=== PATIENT | male | born 1955 | race Caucasian/White ===

== ENCOUNTER → 2018-03-16 | Day surgery (SDC) | payer BC ==
[2018-03-11 13:32] VITALS: BMI 25.4
[~2018-03-16] MED LIST: LIDOCAINE HCL/PF 2% SDV 5ML VIAL ONE; PROPOFOL 20 ML ONE
[2018-03-16 08:21] VITALS: TEMP 97.9
[2018-03-16 10:55] VITALS: BP 114/74; PULSE 68
--- NOTE | 2018-03-18 11:27 | PATH ---
Surgical Pathology Report Patient Name: EDILIA SIERRA V. [facility]. Rec. #: [id number] /Age/Gender: 1955 (Age: 62) / M Account: [id number] Location: [facility] AMBUL[facility]ORY Taken: 03/16/2018 Received: 03/16/2018 Reported: 03/18/2018 Physicians: Hermes Rodriguez M.D. Specimen(s) Received A: BX DUODENUM B: BX ANTRUM C: GASTRIC POLYP Clinical History GERD Rule out celiac disease, rule out H. Pylori, gastritis, gastric polyp Final Diagnosis A. DUODENAL, BIOPSY: DUODENAL MUCOSA WITH NO PATHOLOGIC FINDINGS. NO EVIDENCE OF CELIAC DISEASE. B. ANTRUM, BIOPSY: MILD CHRONIC GASTRITIS. IMMUNOSTAIN IS NEGATIVE FOR H. PYLORI ORGANISMS. C. GASTRIC POLYP, POLYPECTOMY: FUNDIC GLAND POLYP. IMMUNOSTAIN IS NEGATIVE FOR H. PYLORI ORGANISMS. Electronically Signed Tina Browning M.D. Gross Description A. Received in formalin, labeled "duodenum" are 2 yadav, irregular portions of soft tissue averaging 0.4 cm. in greatest dimension. The specimens are submitted in toto in one cassette. B. Received in formalin, labeled "antrum" are 2 yadav, irregular portions of soft tissue measuring 0.4 and 0.6 cm. in greatest dimension. The specimens are submitted in toto in one cassette. C. Received in formalin, labeled "gastric polyp" are 3 yadav, irregular portions of soft tissue ranging from 0.3-0.4 cm. in greatest dimension. The specimens are submitted in toto in one cassette. 03/16/2018 saudi03/16/2018
== END | disposition home or self-care (01) ==
LOC: FASU 07:50
PROVIDERS: ATTEND Internal Medicine Gastroenterology
PROC: 0DB68ZX Excision of Stomach, Via Natural or Artificial Opening Endoscopic, Diagnostic (ICD-10-PCS; 2018-03-16)
PROC: 0DB68ZX Excision of Stomach, Via Natural or Artificial Opening Endoscopic, Diagnostic (ICD-10-PCS; principal; 2018-03-16 09:54)
PROC: 0DB98ZX Excision of Duodenum, Via Natural or Artificial Opening Endoscopic, Diagnostic (ICD-10-PCS; 2018-03-16 09:54)
DX: K29.50 Unspecified chronic gastritis without bleeding (principal); K31.7 Polyp of stomach and duodenum
CPT/HCPCS: 88305-TC; 88342-TC

== ENCOUNTER 2021-08-30 07:24 | Day surgery (SDC) | payer BC ==
[2021-08-29 13:53] VITALS: BMI 25.5
[2021-08-30] MEDS ORDERED: LIDOCAINE HCL/PF 2% SDV 5ML VIAL ONE (07:32)
[2021-08-30] MEDS ORDERED: PROPOFOL 20 ML ONE ×4 (07:32)
[2021-08-30 08:38] VITALS: BP 118/74; PULSE 68
[2021-08-30 09:17] VITALS: TEMP 94
== END 2021-08-30 09:20 | disposition home or self-care (01) ==
LOC: FASU-ENDO 07:24
PROVIDERS: ATTEND Internal Medicine Gastroenterology
PROC: 0DJD8ZZ Inspection of Lower Intestinal Tract, Via Natural or Artificial Opening Endoscopic (ICD-10-PCS; principal; 2021-08-30 08:07)
DX: Z12.11 Encounter for screening for malignant neoplasm of colon (principal); K64.0 First degree hemorrhoids; K64.8 Other hemorrhoids